=== PATIENT | female | born 1980 | race African-American/Black ===

== ENCOUNTER 2016-07-08 02:34 | Emergency (ER) | payer BC ==
[~2016-07-08] VITALS: Ht 177.8 cm; Wt 139.9 kg
[~2016-07-08 02:34] MED LIST: CIPR-255 PO; LEVOIUD
[2016-07-08 02:37] VITALS: TEMP 36.6; Ht 177.8 cm; Wt 139.9 kg
[2016-07-08] MEDS ORDERED: OXYCODONE IR HOME PACK PO ONE (03:45)
[2016-07-08] MEDS ORDERED: OXYC1TAB3 PO ×2 (03:46→03:47)
--- NOTE | 2016-07-08 03:53 | EMERGENCY ROOM VISIT NOTE ---
ED Visit Note First contact with patient: 02:44 CHIEF COMPLAINT: Ankle pain HISTORY OF PRESENT ILLNESS: This 36-year-old patient presents to the emergency department with after sustaining an injury to the left ankle and foot with a twisting, inversion motion when she fell earlier today. The patient complains of pain along the outside of the ankle. The patient denies pain of the foot. The patient rates the pain as throbbing and 5/10. The patient is barely able to bear weight on the foot. Constant pain, worse with movement, weight bearing, and the dependent position. No knee pain, the patient is able to move their toes. No numbness or weakness of the foot, no laceration. The patient has not had a previous fracture to this ankle. The patient has taken Tylenol for the pain. The patient denies any other injury. Patient follows at Dr. Rod from orthopedics. She is broken the other ankle before. REVIEW OF SYSTEMS: A 6 system review of systems was completed with positives and pertinent negatives listed in the HPI. ALLERGIES: Pollen MEDICATIONS: None PMH: None SOCIAL HISTORY: No drug use PHYSICAL EXAM: Vital Signs: Reviewed Nurse's notes, vital signs hypotensive. GENERAL: Pleasant female, no acute distress, but appears in pain, well-developed , well-nourished. MENTAL STATUS: Alert, oriented to person place and time, and cooperative. MUSCULOSKELETAL: The left ankle is swollen and tender over the lateral malleolus, but the skin is intact and there is no ligamentous instability. There is no fifth metatarsal tenderness. There is no tenderness over the rest of the foot. There is no calf or tibia/fibular tenderness. There is no visual deformity. The foot and toes are warm and well-perfused. Dorsalis pedis pulse 2+. Sensation to pain and light touch is intact. Capillary refill less than 2 seconds. EMERGENCY DEPARTMENT COURSE: I examined the patient. Ice pack was applied and patient declined pain medicine. X-rays of the left ankle were reviewed by myself and read by myself and reveal a distal spiral fibular fracture per my interpretation. [facility] Ortho-Glass was applied to the ankle under my direction and the position was satisfactory. Neurovascular status was rechecked and intact. The patient was instructed on the use of crutches. Patient was advised to follow-up with her orthopedist on Saturday or here in the ER sooner for severe pain, numbness, tingling, worsening signs or symptoms or as needed. The patient was discharged home in good condition. Patient was advised to monitor her blood pressure as it was high. Differential diagnoses include sprain, strain, fracture, dislocation and other etiologies were considered. DIAGNOSIS: Left distal fibular fracture, elevated blood pressure DISCHARGE INSTRUCTIONS: As below Current/Historical Medications Scheduled PRN Oxycodone Immediate Rel Tab (Roxicodone Ir), 1-2 TAB PO Q4H PRN for Severe Pain Allergies Coded Allergies: POLLEN (Verified Allergy, Unknown, SEASONAL ALLERGIES, 07/03/13) Vital Signs Date Time Temp Pulse Resp B/P Pulse Ox O2 Delivery O2 Flow Rate FiO2 07/08/16 03:18 78 20 156/88 97 07/08/16 02:37 36.6 87 18 160/115 96 Room Air Departure Information Impression Primary Impression: Closed left fibular fracture Additional Impression: Elevated blood pressure reading Dispostion Home / Self-Care Condition GOOD Prescriptions Oxycodone Immediate Rel Tab (ROXICODONE IR) 5 Mg Tab 1-2 TAB PO Q4H Y for Severe Pain, #10 TAB Prov: Audra Ken PA-C 07/08/16 Forms HOME CARE DOCUMENTATION FORM, IMPORTANT VISIT INFORMATION Patient Instructions High Blood Pressure, My [facility], ED Fx Ankle General Additional Instructions Your blood pressure was high today, see your family care DrLedy for this and monitor it. DO NOT drive, drink alcohol, operate machinery, or perform dangerous activities today. You were given medications in the ER that can affect your ability to safely function or operate a vehicle. Oxycodone (OxyIR) 5mg: Take 1-2 pills every four hours for breakthrough pain. Avoid alcohol, operating machinery or dangerous equipment, working on ladders or roofs, DRIVING, or situations where being under the influence may be dangerous. It is recommended to use an xyvj-mdg-nezyaty stool softener such as Colace, 100mg twice daily while taking this medication to avoid constipation. Ibuprofen(Motrin, Advil) may be used for fever or pain. Use 600mg every six hours as needed. Take with food. Avoid using more than 2400mg in a 24 hour period. Do not use 2400mg per day for more than three consecutive days without physician direction. Prolonged inappropriate use can lead to stomach upset or ulcers. This medication can be taken if you need to drive, work, or perform activities which may be dangerous when taking narcotic pain medication. (AND/OR) Acetaminophen(Tylenol) may be used for fever or pain. Use 1000mg every six hours as needed. Avoid using more than 3000mg in a 24 hour period. This medication can be taken if you need to drive, work, or perform activities which may be dangerous when taking narcotic pain medication. Ice compresses for 20 minutes at a time four times daily for 2-3 days. Use the crutches as instructed. Rest and elevate your injury. Do not get the splint wet. If your splint feels excessively tight, you have worsening pain, develop numbness or tingling, or your digits appear blue, loosen the tina wrap. Then reapply the tina wrap gently without removing the splint. If your symptoms are not quickly relieved return to the ER for re- evaluation. Continue current medications. Return to the ER immediately for any numbness, tingling, severe pain, extreme swelling in the extremity or as needed. Call your Orthopedics tomorrow to arrange follow up for your injury. Problem Qualifiers
[2016-07-08 04:35] VITALS: BP 148/70; PULSE 74; O2SAT 98
--- NOTE | 2016-07-08 09:57 | DIAGNOSTIC IMAGING REPORT ---
LEFT ANKLE MIN 3 VIEWS ROUTINE CLINICAL HISTORY: Left ankle pain following fall. COMPARISON: None FINDINGS: There is a comminuted, mildly displaced fracture of the distal shaft of the left fibula that extends the level of the tibiotalar joint. Fracture extends for 11 cm. There is no acute fracture of the distal left tibia. There is posterior plantar calcaneal spurring. There is no ankle mortise widening. IMPRESSION: Comminuted, mildly displaced fracture of the distal shaft of the left fibula. Electronically signed by: Dakotah Pinto M.D. 07/08/2016 9:55 AM Dictated Date/Time: 07/08/2016 9:53 AM
== END 2016-07-08 04:37 | disposition home or self-care (01) ==
LOC: C.EDB 02:35
DX: S82.832A Other fracture of upper and lower end of left fibula, initial encounter for closed fracture (principal); X50.1XXA Overexertion from prolonged static or awkward postures, initial encounter; W19.XXXA Unspecified fall, initial encounter; R03.0 Elevated blood-pressure reading, without diagnosis of hypertension

== ENCOUNTER → 2016-07-10 | Outpatient (CLI) | payer BC ==
[~2016-07-10] MED LIST changes: -CIPR-255 PO; -LEVOIUD; +OXYC1TAB3 PO
== END | disposition home or self-care (01) ==
LOC: C.RDSM 13:33
PROVIDERS: ATTEND Physical Medicine & Rehabilitation Sports Medicine
DX: M25.562 Pain in left knee (principal); S82.839A Other fracture of upper and lower end of unspecified fibula, initial encounter for closed fracture; X58.XXXA Exposure to other specified factors, initial encounter

== ENCOUNTER → 2016-07-20 | Outpatient (CLI) | payer BC | END | disposition home or self-care (01) | LOC: C.RDSM 12:32 | PROVIDERS: ATTEND Physical Medicine & Rehabilitation Sports Medicine | DX: S82.839A Other fracture of upper and lower end of unspecified fibula, initial encounter for closed fracture (principal); X58.XXXA Exposure to other specified factors, initial encounter ==

== ENCOUNTER → 2016-08-03 | Outpatient (CLI) | payer BC | LOC: C.RDSM 09:33 | PROVIDERS: ATTEND Physical Medicine & Rehabilitation Sports Medicine | DX: S82.65XD Nondisplaced fracture of lateral malleolus of left fibula, subsequent encounter for closed fracture with routine healing (principal); X58.XXXA Exposure to other specified factors, initial encounter ==

== ENCOUNTER → 2016-08-31 | Outpatient (CLI) | payer BC | END | disposition home or self-care (01) | LOC: C.RDSM 12:41 | PROVIDERS: ATTEND Physical Medicine & Rehabilitation Sports Medicine | DX: S82.65XD Nondisplaced fracture of lateral malleolus of left fibula, subsequent encounter for closed fracture with routine healing (principal); X58.XXXD Exposure to other specified factors, subsequent encounter ==

== ENCOUNTER → 2016-10-19 | Outpatient (CLI) | payer BC | END | disposition home or self-care (01) | LOC: C.RDSM 07:55 | PROVIDERS: ATTEND Physical Medicine & Rehabilitation Sports Medicine | DX: M25.561 Pain in right knee (principal); M25.562 Pain in left knee ==

== ENCOUNTER → 2016-10-25 | Outpatient (CLI) | payer BC ==
--- NOTE | 2016-10-25 13:29 | DIAGNOSTIC IMAGING REPORT ---
RIGHT KNEE CT CT DOSE: 272.79 mGy.cm HISTORY: RT KNEE, PATELLAR INSTABILITY Right TECHNIQUE: Multiaxial CT images of the right knee were performed and reformatted in the sagittal and coronal plane without the use of contrast. A dose lowering technique was utilized adhering to the principles of ALARA. COMPARISON: Right knee 10/19/2016. FINDINGS: No fractures within the right knee. There appears be mild internal rotation of the distal femur in relation to the patella and tibia. Therefore, the patella is located lateral to the expected location of the patellar groove of the femur. There is associated subchondral sclerosis and cystic change within the patella consistent with osteoarthritis. This is likely due to patellar maltracking from the rotated femur. No significant knee effusion. Suspect full-thickness cartilage loss at the median ridge of the patella due to the abnormal tracking. The quadriceps tendon and patellar ligament are intact. Tiny marginal osteophytes of the medial compartment of the knee. IMPRESSION: 1. There is mild internal rotation of the distal femur in relation to the patella and tibia. This may be congenital. Therefore, the patella is located lateral to the expected location of the patellar groove of the femur which by definition results in patellar maltracking. 2. Full-thickness cartilage loss with subchondral cystic change at the median ridge of the patella likely due to the abnormal tracking. Electronically signed by: Yevgeniy Colmenares M.D. 10/25/2016 1:28 PM Dictated Date/Time: 10/25/2016 12:50 PM
--- NOTE | 2016-10-25 14:42 | DIAGNOSTIC IMAGING REPORT ---
RIGHT KNEE MRI HISTORY: Right knee pain. RT KNEE, PATELLAR INSTABILITY Right COMPARISON STUDY: Right knee CT 10/25/2016. TECHNIQUE: Multiplanar multisequence MRI of the right knee was performed according to standard department protocol without the use of contrast. FINDINGS: Motion artifact resulting in suboptimal evaluation. Menisci: Focal truncation within the body of the medial meniscus best seen on coronal image 16 consistent with a tiny free edge tear. The lateral meniscus is intact. Ligaments: The anterior and posterior cruciate ligaments are intact. The medial and lateral collateral ligaments are normal in appearance. Extensor mechanism: The quadriceps tendon and patellar ligament are intact. As seen on the prior CT examination there is mild internal rotation of the humeral to the patella and tibia. This likely accounts for the patellar maltracking. The patella demonstrates mild lateral displacement/subluxation in relation to the patellar groove. Articular cartilage and bone: No fracture or dislocation. Subchondral cystic change and edema within the median ridge and medial patellar facet. Near full-thickness cartilage loss at the median ridge of the patella and cartilage fraying within the medial patellar facet and trochlea. Remaining cartilage spaces are intact. Joint effusion: Trace. Soft tissues: Tiny popliteal cyst. Question of a linear filling defect seen within the popliteal vein versus adventitial cystic disease of the popliteal vein. This is best seen on axial image 12. IMPRESSION: 1. There is again noted mild internal rotation of the femur in relation to the patella and tibia. This likely accounts for the patellar maltracking and the patellofemoral chondromalacia. 2. Trace knee effusion. 3. Focal truncation within the body of the medial meniscus which may represent a tiny free of tear. 4. Abnormal appearance to the popliteal vein which could represent a small linear chronic thrombus versus adventitial cystic disease of the popliteal vein. Follow-up venous Doppler is recommended for further evaluation. Electronically signed by: Yevgeniy Colmenares M.D. 10/25/2016 2:41 PM Dictated Date/Time: 10/25/2016 2:32 PM
== END | disposition home or self-care (01) ==
LOC: C.CTS 12:21
PROVIDERS: ATTEND Physical Medicine & Rehabilitation Sports Medicine
DX: M25.361 Other instability, right knee (principal); M22.8X1 Other disorders of patella, right knee

== ENCOUNTER → 2016-11-08 | Outpatient (CLI) | payer BC ==
--- NOTE | 2016-11-08 12:08 | DIAGNOSTIC IMAGING REPORT ---
ULTRASOUND VENOUS DOPPLER ULTRASOUND OF THE RIGHT LOWER EXTREMITY CLINICAL HISTORY: M25.361 RIGHT LEG PAIN, abnormal MRI COMPARISON STUDY: MRI study dated 10/25/2016 FINDINGS: Real-time and color flow Doppler imaging were performed. Flow was seen within the femoral, popliteal and calf veins with no intraluminal thrombus demonstrated. The saphenous vein is patent. IMPRESSION: No evidence of right lower extremity DVT. No popliteal vein abnormalities were visualized as was queried on the preceding MRI examination Electronically signed by: Luis Iglesias M.D. 11/08/2016 12:07 PM Dictated Date/Time: 11/08/2016 12:05 PM
--- NOTE | 2016-11-08 12:38 | DIAGNOSTIC IMAGING REPORT ---
R LOWER EXTREMITY WITHOUT CLINICAL HISTORY: 36 years-old Female presenting with M25.361, patellar instability. TECHNIQUE: Multidetector CT of the bilateral lower extremities was performed without the use of intravenous contrast. IV contrast: None. A dose lowering technique was used consistent with the principles of ALARA (as low as reasonably achievable). COMPARISON: 10/25/2016. CT DOSE (mGy.cm): The estimated cumulative dose is 442.94. 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 The Right: Neck-horizontal angle: 13 degrees Condyle-horizontal angle: 31 degrees (femoral condyles are internally rotated) Angle of the femoral neck relative to the condyles: 44 degrees Femur length: 49.4 cm Tibia length: 41.5 cm Right lower extremity length: 90.9 cm Left: Neck-horizontal angle: 26 degrees Condyle-horizontal angle: 19 degrees (femoral condyles are internally rotated) Angle of the femoral neck relative to the condyles: 45 degrees Femur length: 49.8 cm Tibia length: 41.4 cm Right lower extremity length: 91.2 cm No evidence of hip dysplasia. Bilateral hip joints congruent. Bilateral knee joints congruent. Bilateral lateral patellar subluxation. This is unchanged from CT of the right knee from 10/25/2016. IMPRESSION: 1. Abnormal femoral anteversion/antetorsion bilaterally (normal range 10 to 20 degrees). 2. Bilateral lateral patellar subluxation. 3. No leg length discrepancy. Electronically signed by: Dillan Santamaria M.D. 11/08/2016 12:37 PM Dictated Date/Time: 11/08/2016 12:23 PM
== END | disposition home or self-care (01) ==
LOC: C.ULTR 11:32
PROVIDERS: ATTEND Physical Medicine & Rehabilitation Sports Medicine
DX: M25.361 Other instability, right knee (principal); M25.362 Other instability, left knee; S83.011A Lateral subluxation of right patella, initial encounter; S83.012A Lateral subluxation of left patella, initial encounter; X58.XXXA Exposure to other specified factors, initial encounter

== ENCOUNTER 2021-08-04 06:57 | Inpatient (IN) ==
--- NOTE | 2021-07-21 09:50 | PAT Medication Instructions ---
Medication Instructions Date of Service July 21, 2021 Home Medications acetaminophen 325 mg capsule (Tylenol) 650 mg PO QID PRN amlodipine 10 mg tablet 10 mg PO QAM hydrochlorothiazide 12.5 mg tablet 12.5 mg PO QAM DO NOT take the morning of surgery hydrochlorothiazide 12.5 mg tablet 12.5 mg PO QAM Take morning of surgery With a small sip of water, OTHERWISE NOTHING TO EAT OR DRINK AFTER MIDNIGHT: acetaminophen 325 mg capsule (Tylenol) 650 mg PO QID PRN (if needed) amlodipine 10 mg tablet 10 mg PO QAM Take evening before surgery acetaminophen 325 mg capsule (Tylenol) 650 mg PO QID PRN (if needed) Other Notes If you have any questions please call us at [phone] or [phone] or [phone] or [phone]
--- NOTE | 2021-07-25 11:30 | Anesthesiology Consultation ---
Date of Service July 25, 2021 Assessment & Plan (1) Encounter for pre-operative examination: - COVID screening: Per assessment on 07/25: No known COVID-19 positive contacts or current COVID-19 related symptoms. Travel screen negative. Patient vaccinat ed. Surgeon arranging preop COVID testing. Awaiting results. - Check test AM DOS Chart Review Chart Review: Acceptable Risk for Surgery and Patient seen in Pre Admission Testing Teaching & Discussion Pre-Anesthesia Teaching/Discussion Notes: Instructed NPO after midnight before surgery,except medications with 15 cc of water. Medication instructions provided according to the PAT guidelines. History Surgery Operation Date: 08/04/21 11:15 Proposed Procedures p Total Abdominal Hysterectomy - Timoteo Sarmiento MD Height/Weight Height: 5 ft 10 in Weight: 141.8 kg Allergies Allergy/AdvReac Type Severity Reaction Status Date / Time nickel Allergy Mild Itching Verified 07/21/21 10:18 pollen extracts Allergy Mild Congestion, Verified 07/21/21 10:18 sneezing Medications Home Medications Medication Instructions Recorded Confirmed Last Taken acetaminophen 325 mg capsule 650 mg PO QID PRN 07/20/21 07/20/21 Unknown (Tylenol) amlodipine 10 mg tablet 10 mg PO QAM 07/20/21 07/20/21 Unknown hydrochlorothiazide 12.5 mg tablet 12.5 mg PO QAM 07/20/21 07/20/21 Unknown Past Medical History Medical History History of COVID-19 Dx 01/2021 > congestion, sore throat > resolved Hx of one miscarriage Hypertension Migraine Morbid obesity Seasonal allergies Exercise / Class Metabolic Activity II 4-5 Yardwork/Stairs/Walk up hill Past Family History Family History Father Family history of diabetes mellitus Other No family history of adverse response to anesthesia Past Surgical History Surgical History History of dilatation and curettage [place] teeth removed Past Anesthesia History No Hx of Anesthesia Complications and No Family Hx of Anesthesia Complications History of PONV No Hx of PONV and No Hx of Motion Sickness Social History Smoking Status: Never smoker Do You Dip or Chew Tobacco: No Hx Alcohol Use: Yes Alcohol type: wine alcohol intake frequency: a few times a month substance use type: does not use Review of Systems Patient denies chest pain, shortness of breath, dyspnea on exertion, fever, chills, cough, wheezing, palpitations. Physical Exam Vital Signs VITALS BP 140/88 P 93 TEMP 99.2 SP02 96%RA RESP 16 PHYSICAL Full cervical extension range of motion. Full TMJ range of motion. TMD 4 finger breaths Mallampati Score 1 Dentition: intact Lungs: clear throughout to auscultation Cardiac: regular rate and rhythm, no murmurs noted Spine: normal Extremities: no edema Lab Results Anesthesia Preop Results Results Anesthesia Widget: WBC 7.46 K/uL (4.8-10.8) 07/25/21 Hgb 13.3 g/dL (12.0-16.0) 07/25/21 Hct 39.8 % (37-47) 07/25/21 Plt 346 K/uL (130-400) 07/25/21 Na 137 mmol/L (136-145) 07/25/21 K 3.5 mmol/L (3.5-5.1) 07/25/21 Cl 105 mmol/L (98-107) 07/25/21 CO2 26 mmol/L (21-32) 07/25/21 BUN 11 mg/dl (6-23) 07/25/21 Creat 0.83 mg/dl (0.6-1.2) 07/25/21 Glucose Level 88 mg/dl (70-99(Fasting)) 07/25/21 PT 10.8 Seconds (9.0-12.0) 07/25/21 PTT 28.0 Seconds (21.0-31.0) 07/25/21 INR 1.0 (0.9-1.1) 07/25/21 Blood Type O Positive 07/25/21 Antibody Screen NEGATIVE 07/25/21 Testing Electrocardiogram Date: 07/25/21 NSR at 83bpm.
--- NOTE | 2021-07-25 11:46 | History and Physical Report ---
CHIEF COMPLAINT: Pelvic pain, fibroid uterus. HISTORY OF PRESENT ILLNESS: The patient is a 41-year-old 4, para 2, 2 spontaneous ABs. She is presented about a year ago with pelvic pain and heavy bleeding associated with a fibroid uterus. She has a Mirena IUD in place for control and on her initial visit, she had extremely high bloo d pressure. She went to family physician. Eventually got it controlled on hydrochlorothiazide and a mlodipine. It has been controlled well for over 6 months. She had a transvaginal ultrasound and abdo jeannette ultrasound on 08/09/2020, showed an enlarged fibroid uterus. She has had a worsening pelvic pa in for a year, associated with pressure and discomfort on standing. Presently being scheduled for tot al abdominal hysterectomy with preservation of the ovaries. PAST MEDICAL HISTORY: Two children in good health. ALLERGIES: No known drug allergies. PAST SURGICAL HISTORY: Had a wisdom teeth removed, and had a D and C. MEDICAL HISTORY: High blood pressure and has been on medication for over a year. SOCIAL HISTORY: No smoking. 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 FAMILY HISTORY: Mom is 66, had breast cancer and had a total abdominal hysterectomy for fibroids. D ad is 66, high blood pressure, diabetes. Two sisters, one brother in good health. REVIEW OF SYSTEMS: HEAD: No symptoms of frequent or severe headaches. EYES: No symptoms of blurred vision, double vision. EARS: No symptoms of frequent ear infection, difficulty hearing. NOSE: No symptoms of frequent nosebleeds, difficulty breathing through her nose. THROAT: No symptoms of frequent or severe sore throat, difficulty swallowing. RESPIRATORY SYSTEM: No history of asthma, chest pain, shortness of breath. PHYSICAL EXAMINATION: GENERAL: Well-developed, well-nourished 41-year-old black female, alert, oriented x3, and cooperativ e, in no acute distress, appeared her stated age. EYES: Conjunctivae are pink. Sclerae white, no evidence of jaundice. EARS: Had normal light reflex bilaterally. NOSE: Had normal mucosa. Septum is midline. There were no polyps. THROAT: Had no erythema or evidence of infection. TEETH: Are in good state of repair. HEAD: Was normocephalic, normal distribution of hair. NECK: Supple. Trachea midline. Thyroid is not enlarged. There is no adenopathy appreciated. Both carotids are of good intensity. CHEST: Clear to auscultation and percussion. Wheezes, rales or rhonchi appreciated. HEART: Had regular rhythm. S1 and S2 are normal. ABDOMEN: Soft and nontender. Her fibroids were palpable. PELVIC: Normal-appearing cervix. String was visible from the cervical os. Uterus was about 14-16 w eeks' gestational size. No adnexal masses appreciated. IMPRESSION OF THIS CASE: Hypertension, controlled; pelvic pain, symptomatic fibroids, history of rem oval of wisdom teeth, history of D and C. Job ID: [id number]
[~2021-08-04 06:57] MED LIST changes: +LR 15ML/HR IV SCH; -OXYC1TAB3 PO; +cefOXitin 2,000 MG in DEXTROSE 5% 50 ML IV SCH
[2021-08-04] MEDS ORDERED: fentaNYL citrate 100 MCG/2 ML VIAL ONE (07:50)
[2021-08-04] MEDS ORDERED: MIDAZOLAM HCL 1 MG/ML 2ML VIAL ONE (07:50)
[2021-08-04] MEDS ORDERED: ROCURONIUM BROMIDE 10 MG/ML 5 ML VIAL IV ONE (07:55)
[2021-08-04] MEDS ORDERED: DEXAMETHASONE SOD INJ 4 MG/ML VIAL ONE (07:55)
[2021-08-04] MEDS ORDERED: KETOROLAC 30 MG/ML VIAL ONE (07:55)
[2021-08-04] MEDS ORDERED: ONDANSETRON INJ 2 MG/ML 2 ML VIAL ONE (07:55)
[2021-08-04] MEDS ORDERED: KETAMINE 50 MG/5 ML SYRINGE ONE (07:55)
--- NOTE | 2021-08-04 08:58 | History & Physical Bridge Note ---
Date of Service August 04, 2021 History & Physical Bridge Note I have examined the patient, reviewed the History & Physical and in the interval since the performance of the History & Physical I have noted the following changes of clinical significance: no changes noted
[2021-08-04] MEDS ORDERED: MoRPHine SULFATE PF 1 MG/ML 10 ML AMP/VIAL ONE (09:06)
[2021-08-04] MEDS ORDERED: fentaNYL citrate 100 MCG/2 ML VIAL IV PRN (09:23)
[2021-08-04] MEDS ORDERED: ePHEDrine sulfate 50 MG/ML AMP IV PRN (09:23)
[2021-08-04] MEDS ORDERED: ONDANSETRON INJ 2 MG/ML 2 ML VIAL IV PRN (09:23)
[2021-08-04] MEDS ORDERED: HYDROmorphone INJ 2 MG/ML SYR/VIAL IV PRN (09:23)
[2021-08-04] MEDS ORDERED: ATROPINE SULFATE 0.1 MG/ML 10ML SYR IV PRN (09:23)
[2021-08-04] MEDS ORDERED: HYDROmorphone INJ 2 MG/ML SYR/VIAL ONE (11:00)
[2021-08-04] MEDS ORDERED: NEOSTIGMINE METHYLSULFATE 1 MG/ML 10ML VIAL ONE (11:03)
[2021-08-04] MEDS ORDERED: GLYCOPYRROLATE 0.2 MG/ML VIAL ONE (11:03)
[2021-08-04] MEDS ORDERED: cefOXitin 2,000 MG in DEXTROSE 5% 50 ML IV ONE (11:16)
--- NOTE | 2021-08-04 13:34 | Post Operative Brief Note ---
Immediate Post Op Note v1 Date of Surgery August 04, 2021 Pre & Post Diagnosis Operation Date: 08/04/21 09:05 Pre-Op Diagnosis: Pelvic pain, fibroid uterus Post-Op Diagnosis: Pelvic pain, fibroid uterus I identified the patient and participated in the time-out.: Yes Procedure Operation Date: 08/04/21 09:05 Actual Procedures p Total Abdominal Hysterectomy(Not Applicable) - Timoteo Sarmiento MD Surgeon Timoteo Sarmiento MD Cash Checker Dr Andrade Estimated Blood Loss 100 Findings Consistent with Post-Op Diagnosis venous congestion large fibroid Drains Meier Catheter (16 Yoruba meier catheter 10mL balloon inserted prior to begining of procedure by Sigrdi Davison) and Tommie Drain (vaginal cuff) Complications none
--- NOTE | 2021-08-04 13:35 | Anesthesiology Progress Note ---
Date of Service August 04, 2021 Anesthesia Post Procedure Vital Signs Vital Signs: Temp Pulse Resp BP Pulse Ox 08/04/21 07:45 98.1 F 94 H 18 145/87 H 97 Transfer of Care Handoff Completed per policy Notes Mental Status: alert / awake / arousable and participated in evaluation Patient Amnestic to Procedure: Yes Nausea / Vomiting: adequately controlled Pain: adequately controlled Airway Patency, RR, SpO2: stable & adequate BP & HR: stable & adequate Hydration State: stable & adequate Anesthetic Complications: no major complications apparent and Pt Satisfied with anesthetic care
[2021-08-04] MEDS ORDERED: MEPERIDINE HCL 50 MG/ML CARP IV PRN (15:52)
[2021-08-04] MEDS ORDERED: KETOROLAC 30 MG/ML VIAL IV PRN (15:52)
[2021-08-04] MEDS ORDERED: SENNA 8.6 MG TAB PO PRN (15:52)
[2021-08-04] MEDS ORDERED: MAGNESIUM HYDROXIDE SUSP 30 ML UDC PO PRN (15:52)
[2021-08-04] MEDS ORDERED: bisacodyL 10 MG SUPP PR PRN (15:52)
[2021-08-04] MEDS: D5W AND LACTATED RINGERS 1,000 ML IV SCH (16:38)
--- NOTE | 2021-08-04 23:09 | Operative Report (OR) ---
DATE OF SERVICE: 08/04/2021 PROCEDURE: Total abdominal hysterectomy. INDICATIONS FOR SURGERY: 1. Large uterine fibroid. 2. Pelvic pain and pressure. PREOPERATIVE DIAGNOSIS: Symptomatic large uterine fibroid. POSTOPERATIVE DIAGNOSIS: Symptomatic large uterine fibroid, pelvic congestion syndrome. SURGEON: Jhoana Sarmiento MD. SUB MASTER: Taj Andrade MD. ESTIMATED BLOOD LOSS: 100 mL. ANESTHESIA: General with spinal narcotics. OPERATIVE FINDING AND PROCEDURE: The patient was brought to the OR table. Spinal narcotics had been injected. She was placed under general anesthesia. Hernández catheter was inserted aseptically in the bladder, connected to gravity drainage. Compression stockings were applied. Lower abdomen incisiona l area was painted with an alcohol based sterilizing solution, was allowed to dry for 3 minutes. The n, the abdomen was draped in the usual sterile fashion. A large fibroid could be palpated up to and slightly beyond the level of the umbilicus. After draping in the usual sterile fashion, a midline inc ision was made and carried down to the anterior fascia by sharp dissection. Hemostasis was secured b y electrocauterization. Fascia was incised vertically and then the peritoneum was carefully raised a nd entered. Incision was then carried down to the pelvic brim and up to the umbilicus. We had to extend the inci debbie in order to deliver the fibroid through the incision. After extending it, we were able to delive r the fibroid out through the incision. We placed a Bookwalter retractor and several laparotomy pack s to retract the intestines and provide adequate exposure of the pelvis. At this time, what could be seen was a large fibroid uterus and extremely elongated thin cervix and bladder plexus with multiple congested veins, and this went up to the level of the junction between the uterus and the cervix. W e did careful dissection. We isolated the round ligaments on either side, clamped proximally, then ermelinda ramon, we tagged, did a transfixion suture of chromic and then beyond that we put in a plain silk ti e to secure hemostasis. This was done for right and left side, then the round ligaments were cut. Incision was made above the vesicouterine fold. Bladder was advanced out of the operative field. Th en, the adnexa were taken down by punching posteriorly through the posterior leaf of the broad ligame nt, clamping proximally the ovarian ligament and tube, then distally cutting with electrocautery. Th en, using a chromic gut suture to tag the adnexa and then a silk suture beyond the chromic gut suture to ensure hemostasis. This was done for both the right and left side. The uterocervical junction w as carefully exposed. There was a lot of venous congestion. We used a curved Diego to slide off the cervix on both the right and left side and doubly clamped the uterine vessels. We then cut them chasidy e. Then used a chromic gut suture and then another chromic gut suture after first flashing the clamp s and then removing them. We then cauterized the base. The cervix was extremely thin and extremely long. We advanced the venous plexus out of the operative field being careful not to tear any of the veins, slid off the cervix, both the right and left side with a curved Diego, cut with a stump and then lig ated with a chromic gut suture. This was done in 2 steps because of the length of the cervix. After that, we had good 4 inches of cervix removed. There was still some cervix left, but there was a lot of venous congestion and a lot of veins, so we removed about two-thirds of the cervix, entered the e ndocervical canal and then we basically ligated the edges of the endocervical canal to the stumps of the cardinal ligaments on each side. Then whipstitched the endocervical canal open further, anchorin g it to the cardinal ligaments with a locked suture and then brought the round ligaments down on each side, tied it to the cardinal ligaments for elevation, then we reperitonealized from the right side burying the stumps of the adnexa into the peritoneum and bringing the bladder down, covering all the stumps. We went from the right to the middle and then from the left to the middle and tied the 2 sut ures to each other. Placed a Tommie with a safety pin into the endocervical canal. After this, hem ostasis was excellent. We ensured that the Tommie drain was free and not sutured in, removed all th e packs. Estimated blood loss 100 mL. We did a careful anatomical approximation of the anterior abdominal wall. Peritoneum was closed with a mattress suture of chromic catgut. Recti muscles were approximated with PDS, one anchored at the top of the defect, the other anchored at the bottom of the defect, and with wide lateral bites, was run from the bottom up to the middle, from the top down to the middle and then we washed the incision out. Then approximated the subcutaneous with 2 layers of plain suture. THE PATIENT WAS ALLERGIC TO NICKEL, so we could not use glenn, so we used 3 wide bites of silk in a mattress fashion and then we used narrow bites of silk in a mattress fashion between these bites to approximate the skin edges. Following this, hemostasis was good. Urine output was good. Urine was clear. The patient tolerat ed the procedure well and left the OR in good condition. Job ID: [id number]
[2021-08-05] MEDS: D5W AND LACTATED RINGERS 1,000 ML IV SCH (01:23)
[2021-08-05 07:26] LABS: Hematocrit (blood only) 38.5 % (37-47); Hemoglobin 12.6 g/dL (12.0-16.0)
--- NOTE | 2021-08-05 08:27 | Obstetrical Progress Note ---
Date of Service August 05, 2021 Assessment & Plan Admission and Anticipated Discharge Date Admission Date: August 04, 2021 Subjective abdomen soft and non tender bandage removed incision is clean and dry passing flatus no calf tenderness vaginal bleeding scant hgb 12.6 Results & Data ([facility]) Vital Signs (Past 12 Hours) Vital Signs Temp Pulse Resp BP Pulse Ox 08/05/21 04:15 37.1 C 76 18 108/72 93 08/04/21 23:32 37.1 C 78 18 106/72 92
[2021-08-05] MEDS: oxyCODONE/ACETAMINOPHEN 5mg/325mg TAB PO PRN ×2 (10:36→18:21)
[2021-08-05] MEDS: hydroCHLOROthiazide 25 MG TAB PO SCH (13:08)
[2021-08-05] MEDS: amLODIPine BESYLATE 5 MG TAB PO SCH (13:09)
[2021-08-06] MEDS: oxyCODONE/ACETAMINOPHEN 5mg/325mg TAB PO PRN ×2 (06:39→13:31)
[2021-08-06] MEDS: IBUPROFEN 600 MG TAB PO PRN ×2 (06:39→13:31)
--- NOTE | 2021-08-06 08:26 | Obstetrical Progress Note ---
Date of Service August 06, 2021 Assessment & Plan Admission and Anticipated Discharge Date Admission Date: August 04, 2021 Subjective abdomen soft and non tender incision is clean and dry no calf tenderness ambulating well vaginal bleeding scant eliseo drain with safety pin removed hgb 12.6 Results & Data ([facility]) Vital Signs (Past 12 Hours) Vital Signs Temp Pulse Resp BP Pulse Ox 08/05/21 23:40 37.3 C 100 H 16 99/66 L 91
[2021-08-06] MEDS: amLODIPine BESYLATE 5 MG TAB PO SCH (11:47)
[2021-08-06] MEDS: hydroCHLOROthiazide 25 MG TAB PO SCH (11:48)
--- NOTE | 2021-08-07 07:14 | Discharge Summary (DS) ---
HOSPITAL COURSE: Mrs. Milligan was admitted for removal of a symptomatic large fibroid uterus. She has been seen in my office for years, presented about a year ago with symptoms of pelvic pain, had not b een in the office for several years. At that time, she had quite severe hypertension, so she was ref erred to a general practitioner who over the next year brought the hypertension under control. On day of admission, she was taken to the OR. She was given spinal narcotics and under general anesth esia through a midline incision a large fibroid uterus was removed. The ovaries were preserved. The surgery was complicated by the size of the specimen and also she had a lot of bladder varicosities. As we worked our way down towards the bladder, some of the varicosities then started to collapse. I t also was noted that the cervix was extremely long and thin, the cervix having been probably well at tached by the cardinal ligaments and the size of the uterus just elongated the cervix. We probably l eft a small piece of the cervix in and did that because of the bladder varicosities, which we would h ave to start to enter if we continue to remove additional portion of the cervix. We finished the pro cedure in the usual fashion, suspended the cuff and portion of the cervix, reperitonealized everythin g, and did mattress sutures of nylon. We did not use glenn because the patient had a nickel allerg y. Postoperatively, she did excellent. Her postoperative hemoglobin was 12.6. Within 24 hours, she was passing gas, having normal bowel sounds, was on a regular diet. The following day, she continue d ambulating well, passing gas. Incision was clean and dry. The Tommie drain with safety pin was r emoved from the vaginal cuff. She was given the usual instructions to call if she had a temperature over 100 or any heavy bleeding, call the office if she had any problems at all, and she was given ins tructions on what type of sequence she should take her pain medicines in, namely take the nonnarcotic pain medicines first and get maximum effect from those, and then top it off with Percocet. She was also instructed to come back in the office for a week to start removing some of the sutures. Job ID: [id number]
== END 2021-08-06 13:55 | disposition home or self-care (01) | DRG 742 ==
LOC: ASU 06:57 → 4E2 13:30